=== PATIENT | male | born 1985 | race Caucasian/White ===

== ENCOUNTER 2024-08-29 19:14 | Emergency (ER) | payer OTHER ==
[~2024-08-29] VITALS: Ht 177.8 cm; Wt 143.0 kg
[~2024-08-29 19:14] MED LIST: ACET325 PO; BUPR150ER PO; ERGO50000 PO; ERYT333ERA PO; PROP10 PO; QUET25 PO; SERT100 PO
[2024-08-29 19:19] VITALS: BP 165/96
[2024-08-30] MEDS ORDERED: Dexamethasone Sod Phos 10 MG/ML 1ML VIAL PO ONE (01:45)
[2024-08-30] MEDS ORDERED: Ibuprofen 600 MG Tab PO ONE (01:45)
== END 2024-08-30 02:42 | disposition home or self-care (01) ==
LOC: ER 19:14
DX: J06.9 Acute upper respiratory infection, unspecified (principal); R59.0 Localized enlarged lymph nodes; Z68.42 Body mass index [BMI] 45.0-49.9, adult; Z79.899 Other long term (current) drug therapy
CPT/HCPCS: 87081; 87430; 99283; A9270; J1100